=== PATIENT | male | born 1955 | race Caucasian/White ===

== ENCOUNTER → 2017-10-22 | Outpatient (CLI) | payer BC, OTHER | LOC: ULTRA 08:57 | DX: N43.3 Hydrocele, unspecified (principal); N50.82 Scrotal pain; N50.819 Testicular pain, unspecified; G89.29 Other chronic pain ==

== ENCOUNTER → 2021-02-19 | Outpatient (CLI) | payer OTHER | LOC: CAT 14:43 | PROVIDERS: ATTEND Family Medicine | DX: Z13.6 Encounter for screening for cardiovascular disorders (principal); I25.10 Atherosclerotic heart disease of native coronary artery without angina pectoris; E78.00 Pure hypercholesterolemia, unspecified ==